=== PATIENT | female | born 1965 | race Two or more races ===

== ENCOUNTER 2017-01-22 22:42 | Emergency (ER) | payer OTHER, MEDICAID ==
--- NOTE | 2017-01-22 22:51 | EDPHY ---
H & P Stated Complaint: Cough, will not stop Time Seen by Provider: 01/22/17 22:44 HPI/ROS: Chief complaint: Harsh cough, persists for 1 week, will not stop HPI: This is a 51-year-old female who previously was on metformin but is now no longer. Her most recent hemoglobin A1c in the last corner was 7.6. Her daughter tells me that she was admitted a year ago for some diabetic complications to an outside hospital for a whole week. Today's illness been going on for a week. It really has not been getting any better. Early in the face there was an associated fever but was not checked as was tactile. Throughout the course of the week there has been somewhat of a headache some body aches and dry cough. At time there is some green phlegm from her sinuses. The cough does make her head feel little bit worse but her head degree of headache is mild. No reports of discomfort when she leans forward with respect to the forehead or the sinus area. The cough itself will not let her sleep. It is keeping her awake. She has tried some Robitussin DM without any relief. She notes that in the last 5 years she has had a tetanus shot which included pertussis. There is no exposure to young children. She did receive the seasonal influenza vaccine this year. No shaking chills or rigors ROS: Constitutional - subjective fever 5 days ago ENT - no discharge, or injection no difficulty swallowing, sore throat. No earache. Respiratory - No Shortness of breath, phlegm, wheezing or pleuritic chest pain. The cough is dry Cardiovascular-no chest pain from coughing so harshly Musculoskeletal - no joint or muscle pain. Integument - no rashes. Neurological - mild frontal headache, tolerable. Not needing any pain medicines per patient report. No numbness, tingling, or paresthesias. No focal motor weakness. Immunological - no swelling or lymphadenopathy 10 point ROS otherwise negative Source: Patient Exam Limitations: No limitations - Personal History Tetanus Vaccine Date: 2009 - Medical/Surgical History Hx Asthma: No Hx Chronic Respiratory Disease: No Hx Diabetes: Yes Hx Cardiac Disease: No Hx Renal Disease: No Hx Cirrhosis: No Hx Alcoholism: No Hx HIV/AIDS: No Other PMH: DIET CONTROLLED DIABETES, hypertension, BTL - Family History Significant Family History: No pertinent family hx - Social History Smoking Status: Current some day smoker Alcohol Use: None Drug Use: None - Physical Exam Exam: Gen: Well developed, well nourished. Nontoxic. Overweight female with a harsh dry sounding cough. She has no air hunger. No respiratory distress or wheezing. HEENT: Normocephalic. Ears: TMs are clear. Hearing normal. Eyes: PERRL. No conjunctival injection or pallor. no jaundice. Nose: No nasal discharge. Sinuses are nontender. Throat: Membranes are moist. Oropharynx is without erythema or exudate. Normal phonation. Neck: Trachea is in the ML. No laryngeal tenderness. No adenopathy Cardiovascular: Regular rhythm out murmur Lungs: Good air entry into both lungs. Rales her at the right base.. No air hunger. No respiratory distress. Skin: Good color, without pallor. There is no diaphoresis. Skin is warm and dry , without diaphoresis. Intact without rashes ] Constitutional: Initial Vital Signs Temperature (C) 37.1 C 01/22/17 22:55 Heart Rate 98 01/22/17 22:55 Respiratory Rate 18 01/22/17 22:55 Blood Pressure 128/78 H 01/22/17 22:55 O2 Sat (%) 97 01/22/17 22:55 O2 Delivery Mode Room Air Allergies/Adverse Reactions: No Known Allergies Allergy (Verified 01/22/17 22:58) Home Medications: Medication Instructions Recorded Miscellaneous Medical Supply [NO 1 ea [facility] [place] AD 11/07/12 HOME MEDS] Insulin Syringe 01/22/17 Lantus 100 UNITS/ML (*) 01/22/17 novoLOG 01/22/17 Benzonatate 200 mg PO TID PRN #28 capsule 01/23/17 Medical Decision Making - Diagnostics Imaging Results: Imaging Impressions Chest X-Ray 01/22/17 23:11 Impression: 1. Prominence of perihilar interstitial markings and peribronchial cuffing. Findings are nonspecific but can be seen with bronchitis, reactive airway disease, or viral process. 2. Poor inspiration. Films reviewed by me on PACs. Agree. ED Course/Re-evaluation: In view of a persistent cough albeit without fever in a 51-year-old with diabetes plan was made for evaluation regarding the rales at the right base to include chest x-ray, CBC, as well as lactic acid. She has denied any need for pain medicine at this time. She did receive a dose of Tessalon for the cough which she reported to work well Lab Review: CBC normal Lactic acid negative Electrolytes normal Hyperglycemia 311 Ultimately her chest x-ray was negative showing poor inspiration in no signs of pneumonia. She did not have anything on clinical exam to support a concerned that she had for sinusitis. Thus I believe she is at the tail end of influenza , less contagious than usual but that should be off for the next 3 days all the same and Tessalon for the cough. Differential Diagnosis: Diagnostic considerations include, but are not limited to, the following: URI, sinusitis, pharyngitis, otitis media, pneumonia, allergy, influenza. - Data Points Laboratory Results: Laboratory Results 01/22/17 23:19 01/22/17 22:19 01/22/17 01/22/17 01/22/17 23:19 22:19 22:19 WBC 7.44 10^3/uL 10^3/uL (3.80-9.50) RBC 4.62 10^6/uL 10^6/uL (4.18-5.33) Hgb 14.5 g/dL g/dL (12.6-16.3) Hct 41.4 % % (38.0-47.0) MCV 89.6 fL fL (81.5-99.8) MCH 31.4 pg pg (27.9-34.1) MCHC 35.0 g/dL g/dL (32.4-36.7) RDW 12.8 % % (11.5-15.2) Plt Count 278 10^3/uL 10^3/uL (150-400) MPV 9.9 fL fL (8.7-11.7) Neut % (Auto) 58.3 % % (39.3-74.2) Lymph % (Auto) 31.3 % % (15.0-45.0) [place] % (Auto) 7.7 % % (4.5-13.0) Eos % (Auto) 1.9 % % (0.6-7.6) Baso % (Auto) 0.4 % % (0.3-1.7) Nucleat RBC Rel Count 0.0 % % (0.0-0.2) Absolute Neuts (auto) 4.34 10^3/uL 10^3/uL (1.70-6.50) Absolute Lymphs (auto) 2.33 10^3/uL 10^3/uL (1.00-3.00) Absolute Monos (auto) 0.57 10^3/uL 10^3/uL (0.30-0.80) Absolute Eos (auto) 0.14 10^3/uL 10^3/uL (0.03-0.40) Absolute Basos (auto) 0.03 10^3/uL 10^3/uL (0.02-0.10) Absolute Nucleated RBC 0.00 10^3/uL 10^3/uL (0-0.01) Immature Gran % 0.4 % % (0.0-1.1) Immature Gran # 0.03 10^3/uL 10^3/uL (0.00-0.10) VBG Lactic Acid 1.8 mmol/L mmol/L (0.7-2.1) Sodium 143 mEq/L mEq/L (134-144) Potassium 4.3 mEq/L mEq/L (3.5-5.2) Chloride 101 mEq/L mEq/L (97-110) Carbon Dioxide 28 mEq/l mEq/l (22-31) Anion Gap 14 mEq/L mEq/L (8-16) BUN 14 mg/dL mg/dL (7-23) Creatinine 0.6 mg/dL mg/dL (0.6-1.0) Estimated GFR > 60 Glucose 311 mg/dL H mg/dL (70-100) Calcium 9.2 mg/dL mg/dL (8.5-10.4) Medications Given: Discontinued Medications Benzonatate (Tessalon Pearles) 200 mg PO EDNOW ONE Stop: 01/22/17 23:12 Last Admin: 01/22/17 23:16 Dose: 200 mg Departure - Departure Disposition: Home, Routine, Self-Care Clinical Impression: Upper respiratory infection, viral Hyperglycemia due to type 2 diabetes mellitus Qualifiers: Diabetes mellitus long lines operator insulin use: with correction use Qualified Code(s): E11.65 - Type 2 diabetes mellitus with hyperglycemia Condition: Good Instructions: Upper Respiratory Infection (ED) Additional Instructions: Take benzonatate for the cough If you have much of a headache Tylenol would work well. Most of the time we were for patients with diabetes to avoid ibuprofen Your labs show that you need extra fluids. Referrals: Babatunde Juarez MD [Primary Care Provider] - As per Instructions Stand Alone Forms: Work Excuse Prescriptions: Benzonatate 200 mg PO TID PRN #28 capsule PRN Reason: Cough, Moderate
[2017-01-22] MEDS ORDERED: BENZONATATE 100 MG CAP PO ONE (23:11)
[2017-01-22 23:39] LABS: ANION GAP 14 mEq/L (8-16); CALCIUM 9.2 mg/dL (8.5-10.4); CARBON DIOXIDE 28 mEq/l (22-31); CHLORIDE 101 mEq/L (97-110); CREATININE 0.6 mg/dL (0.6-1.0); GLOMERULAR FILTRATION RATE > 60; GLUCOSE 311 mg/dL (70-100); POTASSIUM 4.3 mEq/L (3.5-5.2); SODIUM 143 mEq/L (134-144)
[2017-01-22 23:47] LABS: % IMMATURE GRANULYOCYTES 0.4 % (0.0-1.1); ABSOLUTE IMMATURE GRANULOCYTES 0.03 10^3/uL (0.00-0.10); ADD DIFF? NO; ADD MORPH? NO; ADD SCAN? NO; ATYPICAL LYMPHOCYTE FLAG 0 (0-99); FRAGMENT RBC FLAG 0 (0-99); HEMATOCRIT 41.4 % (38.0-47.0); HEMOGLOBIN 14.5 g/dL (12.6-16.3); LEFT SHIFT FLG 0 (0-99); LIPEMIA HEMOLYSIS FLAG 90 (0-99); MEAN CELL HEMOGLOBIN 31.4 pg (27.9-34.1); MEAN CELL VOLUME 89.6 fL (81.5-99.8); MEAN PLATELET VOLUME 9.9 fL (8.7-11.7); PLATELET CLUMPS FLAG 0 (0-99); PLATELET COUNT 278 10^3/uL (150-400); RED BLOOD CELL COUNT 4.62 10^6/uL (4.18-5.33); RED CELL DISTRIBUTION WIDTH 12.8 % (11.5-15.2)
[2017-01-23 00:42] VITALS: BP 130/85; PULSE 92; RESP 16; TEMP 98.6; O2SAT 94
== END 2017-01-23 00:40 | disposition home or self-care (01) ==
LOC: CED 22:42
DX: J06.9 Acute upper respiratory infection, unspecified (principal); E11.65 Type 2 diabetes mellitus with hyperglycemia; F17.200 Nicotine dependence, unspecified, uncomplicated; Z79.4 Long term (current) use of insulin
CPT/HCPCS: 71020-PO; 80048-PO; 83605-PO; 85025-PO

== ENCOUNTER 2017-10-26 21:23 | Emergency (ER) | payer OTHER, MEDICAID ==
[2017-10-26 21:44] VITALS: BP 127/87
[2017-10-26] MEDS ORDERED: IBUPROFEN 600 MG TAB PO ONE (21:53)
[2017-10-26] MEDS ORDERED: ACETAMINOPHEN 500 MG TAB PO ONE (21:53)
[2017-10-26] MEDS ORDERED: PENICILLIN VK 500 MG TAB PO ONE (21:57)
--- NOTE | 2017-10-26 21:57 | EDPHY ---
H & P Time Seen by Provider: 10/26/17 21:43 HPI/ROS: This patient complains of 3 day history of sore throat that became more severe today with associated odynophagia. She also has mild left ear ache associated with her symptoms. She is concerned about strep because her daughter was recently diagnosed with strep pharyngitis. The patient did not take any pain medication for her symptoms and denies any other exacerbating factors. She came in by private vehicle accompanied by her fiance. ROS: Constitutional: No high fevers or chills HEENT: No nasal congestion. No change in hearing. Pulmonary: No cough or dyspnea Cardiovascular: No lightheadedness GI: She had nausea earlier but no vomiting. Endocrine: No significant elevation of her blood sugars today that she does not recall the specific numbers 7 point ROS is otherwise negative except as indicated in HPI and ROS. Past Medical/Surgical History: Insulin-dependent diabetes Smoking Status: Light smoker Physical Exam: Physical Exam Vital signs are normal. General: No acute distress HEENT: Nose: Clear discharge bilaterally. No sinus tenderness to percussion. Ears: External canals and tympanic membranes are clear with no erythema or abnormal findings bilaterally. Oropharynx: Mild erythema to posterior pharynx. No exudates. No dysphonia. No drooling or stridor. Eyes: Pupils equal and react to light. Extraocular motions are intact. Neck: Supple with no meningismus. No lymphadenopathy Lungs: Clear to auscultation bilaterally with no rales, rhonchi or wheeze. No respiratory distress. Cardiac: Regular rate and rhythm with no murmur gallop or rub Skin: No rash or pallor. Neuro: Alert with no focal deficits noted. Initial differential diagnosis: Strep pharyngitis, viral pharyngitis Constitutional: Initial Vital Signs Temperature (C) 36.6 C 10/26/17 21:30 Heart Rate 97 10/26/17 21:30 Respiratory Rate 18 10/26/17 21:30 Blood Pressure 127/87 H 10/26/17 21:30 O2 Sat (%) 91 L 10/26/17 21:30 O2 Delivery Mode Room Air Allergies/Adverse Reactions: No Known Allergies Allergy (Verified 10/26/17 21:37) Home Medications: Medication Instructions Recorded Miscellaneous Medical Supply [NO 1 ea [facility] 11/07/12 HOME MEDS] Insulin Syringe 01/22/17 Lantus 100 UNITS/ML (*) 01/22/17 novoLOG 01/22/17 Mbx Soln;Maalox/Diphen/Lido 10 - 15 ml PO Q2 PRN #150 ml 10/26/17 [Maalox/Diphenhydramine/Lido] Penicillin V Potassium [Penicillin 500 mg PO BID #20 tab 10/26/17 VK] MDM/Departure - MDM Diagnostics: POC rapid strep is negative Medications Given: Discontinued Medications Acetaminophen (Tylenol) 1,000 mg PO EDNOW ONE Stop: 10/26/17 21:54 Last Admin: 10/26/17 22:01 Dose: 1,000 mg Ibuprofen (Motrin) 600 mg PO EDNOW ONE Stop: 10/26/17 21:54 Last Admin: 10/26/17 22:02 Dose: 600 mg Penicillin V Potassium (Pen Vk) 500 mg PO EDNOW ONE PRN Reason: Protocol Stop: 10/26/17 21:58 Last Admin: 10/26/17 22:02 Dose: 500 mg ED Course/Re-evaluation: Discussion: Given exposure to strep and history of insulin-dependent diabetes, will cover with penicillin antibiotic. I counseled regarding this. She is given a 1st dose of ibuprofen Tylenol here for pain control and penicillin 500 mg p.o. No clinical evidence of peritonsillar abscess, sepsis or other red flag findings. - Depart Disposition: Home, Routine, Self-Care Clinical Impression: Pharyngitis Qualifiers: Pharyngitis/tonsillitis etiology: unspecified etiology Qualified Code(s): J02.9 - Acute pharyngitis, unspecified Condition: Good Instructions: Pharyngitis (ED) Additional Instructions: Diagnosis: Pharyngitis Plan: Ibuprofen Tylenol for pain MDX solution -rinse gargle spit as needed Penicillin antibiotic Return for any significant worsening despite treatment plan. Prescriptions: Mbx Soln;Maalox/Diphen/Lido [Maalox/Diphenhydramine/Lido] 10 - 15 ml PO Q2 PRN # 150 ml PRN Reason: throat pain Penicillin V Potassium [Penicillin VK] 500 mg PO BID #20 tab Referrals: NONE *PRIMARY CARE P,. [Primary Care Provider] - As per Instructions Babatunde Juarez MD [Medical Doctor] - As per Instructions
== END 2017-10-26 22:10 | disposition home or self-care (01) ==
LOC: CED 21:23
DX: J02.9 Acute pharyngitis, unspecified (principal); E10.9 Type 1 diabetes mellitus without complications; F17.200 Nicotine dependence, unspecified, uncomplicated